=== PATIENT | male | born 1950 | race Caucasian/White ===

== ENCOUNTER 2021-03-13 10:23 | Outpatient (CLI) | payer MEDICARE, SELFPAY ==
--- NOTE | ~2021-03-13 | MR_ITS ---
EXAMINATION: MR knee RT wo con DATE: 03/13/2021 11:46 INDICATION: Right knee pain and osteoarthritis. TECHNIQUE: Magnetic resonance imaging (MRI) of the right knee was performed without intravenous contr ast. Sequences included coronal PD-weighted FSE, coronal PD-weighted FS FSE, sagittal T2-weighted FS E, sagittal PD-weighted FS FSE and axial PD weighted fat saturated FSE. COMPARISON: None. FINDINGS: Medial compartment: Complex tear of the body and posterior horn of the medial meniscus. The medial meniscal body is small with truncated free edge. Partial-thickness cartilage loss with chondral surface regularity along th e medial tibial plateau most prominent on the medial third were involved greater than 50% the cartila ge thickness but without degenerative subchondral changes. Additional partial thickness cartilage los s throughout the weightbearing medial femoral condyle with scattered deeper fissuring. Mild subarticu lar edema along the medial rim of the anterior weightbearing medial femoral condyle. Lateral compartment: Longitudinal horizontal tear extending to the inferior articular surface at the posterior horn of the lateral meniscus. There appears be some fraying along the free edge of the lateral meniscal body. Pa rtial thickness cartilage loss with smooth chondral surface along the posterior weightbearing lateral femoral condyle. Remaining cartilage in the lateral compartment is normal. Patellofemoral compartment: Partial-thickness cartilage loss about the patella greatest at the medial patellar facet where it inv olves greater than 50% the cartilage thickness. There are superimposed chondral fissuring with underl gorge cortical or regularity and subarticular edema at the central aspect of the apical ridge. Region of deep chondral ulceration at the caudal half of the lateral trochlea with additional minimal cortic al irregularity and mild subarticular edema. Ligaments and tendons: Anterior and posterior cruciate ligaments are normal. The fibular collateral ligament is normal. Ther e is linear fluid signal in the tibial collateral ligament bursa extending between the deeper menisca l femoral and meniscal tibial components and the more superficial component of the tibial collateral ligament. Mild patellar and distal quadriceps tendinopathy with prominent enthesophytes both at the a nterior tibial tubercle and at the upper pole of the patella. The visualized medial and lateral hamst ring tendons as well as the iliotibial band are normal. Fluid: Physiologic amount of fluid in the joint space. No loose osteochondral bodies identified. Osseous/other: Bone alignment is normal. No fracture or pathologic marrow replacing process. Mild subcutaneous edema along the anterior half of the knee. IMPRESSION: 1. Complex medial meniscal tear. 2. Longitudinal horizontal tear at the posterior horn of the lateral meniscus with fraying along the free edge of the body. 3. 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 4. Minimal tibial collateral ligament bursitis. Reviewed, dictated and finalized at location A. IMPRESSION: 1. Complex medial meniscal tear. 2. Longitudinal horizontal tear at the posterior horn of the lateral meniscus w ith fraying along the free edge of the body. 3. 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 4. Minimal tibial collateral ligament bursitis.
== END 2021-03-13 10:24 | disposition home or self-care (01) ==
PROVIDERS: Visit Provider Orthopaedic Surgery
DX: G89.29 Other chronic pain (principal); M25.561 Pain in right knee; S83.231A Complex tear of medial meniscus, current injury, right knee, initial encounter; M17.11 Unilateral primary osteoarthritis, right knee; M94.261 Chondromalacia, right knee; M71.561 Other bursitis, not elsewhere classified, right knee
CPT/HCPCS: 73721